=== PATIENT | female | born 1985 | race Caucasian/White ===

== ENCOUNTER 2016-05-17 05:50 | Observation (INO) | payer OTHER ==
[~2016-05-17] VITALS: Ht 154.9 cm; Wt 82.6 kg
[~2016-05-17 05:50] MED LIST: DEP250A PO; LORA-303 PO; ONDA4TAB12 PO; PANT40TA3 PO; PROP20TA5 PO
[2016-05-17 05:59] VITALS: BP 142/93; PULSE 98; RESP 24; O2SAT 98
--- NOTE | 2016-05-17 06:01 | ED.REPORT ---
IXK-Qef-Kzde Illness Date of Service May 17, 2016 ED Provider: Patient is a 30 year old female with a history of hospitalizations for cyclical vomiting who presents to the ED complaining of vomiting. Pt was last seen in the ER for similar symptoms two months ago. She has a history of frequent marijuana use, and reports that she is still smoking marijuana on a daily basis. Pt reports diffuse abdominal pain, onset two days and states that she has had similar pain like this before. Pt denies fever. Nursing Notes Stated Complaint: FLU SYMPTOMS Chief Complaint: FLU/Cold Symptoms Nursing Notes Reviewed: Yes Allergies: Coded Allergies: hydromorphone (Verified Allergy, Intermediate, Nausea,Vomiting, 03/10/16) Scheduled Divalproex DR (Depakote DR) 250 Mg Tablet 250 MG PO BID Pantoprazole DR (Pantoprazole DR) 40 Mg Tablet.dr 40 MG PO DAILY Propranolol HCl (Propranolol HCl) 20 Mg Tablet 10 MG PO TID Scheduled PRN Lorazepam (Ativan) 1 Mg Tablet 1 MG PO TID PRN PRN eva Ondansetron ODT (Ondansetron ODT) 4 Mg Tab.rapdis 4 MG PO Q6H PRN PRN For Nausea General Time Seen by Provider: 06:00 Chief Complaint Vomiting Hx Obtained From: Patient Arrived By: Walk-in Onset Occurred: 2 days ago Symptom Duration: Since onset Severity: Current: Mild Severity: Maximum: Mild Recent Healthcare: Recent hospitalization Similar Sx Previous: Yes Past Medical History 03/17/16 Consultation: ASSESSMENT AND PLAN: A 30-year-old woman presenting with chronic nausea and vomiting. My plan will be to evaluate for any mucosal disease and would therefore plan for upper endoscopy. I would recommend continuing PPI daily. If upper endoscopy is normal, would then recommend gastric emptying study. If gastric emptying study is normal, would recommend checking a cortisol level to rule out adrenal insufficiency and check a TSH if not already performed. Would also in the meantime give her a trial of benzodiazepines to see if relieving her anxiety may help with her nausea and vomiting. Additionally I did discuss with her the importance of continued marijuana abstinence; however, I do not believe that she will be able to abstain, as she did report to me that this is the only thing she has found that helps her nausea and vomiting. Past Medical History Multiple admissions for intractable nausea and vomiting secondary to cyclical vomiting. Past Surgical History laparascopic cholecystectomy Reports: Reports: Tubal ligation Family History Noncontributory Smoking History Former Smoker Social History Alcohol Use: "Social" Drug Use: THC Other Social History: Frequent ED visitor, Local resident Ambulatory Status Independent Review of Systems Constitutional: Reports: Chills, Denies: Fever GI: Reports: Abdominal pain (diffuse), Nausea, Vomiting Complete sys rev & neg: except as marked. Physical Exam Initial Vital Signs Vital Signs (First) Date Time Temp Pulse Resp B/P Pulse Ox O2 Delivery O2 Flow Rate FiO2 05/17/16 05:59 36.5 98 24 142/93 98 Room Air Initial VS: Reviewed Head / Eyes: Atraumatic, Normocephalic, PERRL ENT: Mucous membranes moist, Conjunctiva normal, No scleral icterus Extremities: Vascular intact, Neuro intact, No swelling, No tenderness Psychiatric: Mood/affect normal, Behavior normal, Normal thought content General/Constitutional: Awake, Alert crying out in pain actively vomiting over a garbage can from home Neck: Atraumatic, Supple, Full range of motion, Non-tender Respiratory / Chest: Atraumatic, Breath sounds NL, Breath sounds = bilat, No respiratory distress Cardiovascular: Heart rate NL, Regular rhythm, Heart sounds NL Skin: Atraumatic, Color NL, No rash Neurologic: Oriented X3, Speech NL, No motor deficits, No sensory deficits Abdomen: No guarding, No rebound diffusely tender to mild palpatation Lower Extremity / Pelvis / MS: No edema Interpretation & Diagnostics Interpretation & Diagnostics: Pathology report from 03/19/16 FINAL DIAGNOSIS: 1.DUODENAL BIOPSY: DUODENAL MUCOSA WITH NO DIAGNOSTIC ALTERATIONS. Negative for inflammation, sprue, dysplasia, and malignancy. 2.GASTRIC BIOPSY: ANTRAL AND BODY-TYPE MUCOSA WITH NO DIAGNOSTIC ABNORMALITY. Negative for Helicobacter organisms. Negative for intestinal metaplasia. Negative for dysplasia and malignancy. Urine dip: positive Protein, Large Ketones, positive Blood Lab Results Interpretation Result Diagram: 05/17/16 0640 05/17/16 0640 Test 05/17/16 06:40 05/17/16 09:15 White Blood Count 14.2th/mm3 (3.8-10.1) Red Blood Count 4.74mil/mm3 (3.90-5.20) Hemoglobin 14.5g/dL (12.0-15.6) Hematocrit 42.3% (35.0-46.0) Mean Corpuscular Volume 89.2fL (81-100) Mean Corpuscular Hemoglobin 30.6pg (27.0-35.0) Mean Corpuscular Hemoglobin Concent 34.3% (32.0-37.0) Red Cell Distribution Width 12.6% (12.3-15.4) Platelet Count 267bil/L (150-400) Neutrophils (%) (Auto) 89.6% (40-74) Lymphocytes (%) (Auto) 4.2% (14-46) Monocytes (%) (Auto) 4.9% (4-12) Eosinophils (%) (Auto) 0.9% (0-5) Basophils (%) (Auto) 0.1% (0-3) Sodium Level 136mEq/L (134-144) Potassium Level 4.1mEq/L (3.5-5.2) Chloride Level 94mEq/L (97-108) Carbon Dioxide Level 21mmol/L (18-29) Blood Urea Nitrogen 24mg/dL (6-20) Creatinine 0.75mg/dL (0.57-1.00) Estimat Glomerular Filtration Rate 129mL/min (>59) Glucose Level 206mg/dL (60-99) Calcium Level 9.4mg/dL (8.5-10.1) Magnesium Level 1.7mg/dL (1.6-2.6) Total Bilirubin 0.7mg/dL (0.0-1.2) Aspartate Amino Transf (AST/SGOT) 22U/L (0-50) Alanine Aminotransferase (ALT/SGPT) 22U/L (0-32) Alkaline Phosphatase 61U/L (25-150) Total Protein 8.2g/dL (6.4-8.4) Albumin 4.8g/dL (3.4-5.0) Lipase 22U/L (13-60) Hold Small Top Tube Received (Received) Hold Urine Received (Received) Re-Evaluation & MDM Med Decision/Clinical Course Patient minimally improved with significant pharmacologic intervention. Recommend hospitalization for observation and symptom Medicare. Source of Hx: Old records Re-Evaluation/Progress : Time of Eval: 10:06 Re-Evaluation/Progress Note: Pt rechecked. Informed pt of diagnosis and lab results. Pt understands and requests admission to hospital to maintain symptoms. All questions addressed. Consultation : Referral / Consult Name: Edgar Morales MD Consulted With: Hospitalist Requested Call at: 10:09 Call Returned at: 11:10 Trades Helper: Will see patient, Agrees with eval, Agrees with plan, Accepts admit Counseled Regarding: Diagnosis, Lab results, Need for admission Patient Discharge & Departure Impression: Primary Impression: Intractable nausea and vomiting Vomiting type: cyclical vomiting Qualified Code: G43.A1 - Cyclical vomiting , intractable Disposition: ADMITTED TO HOSPITAL Discharge Condition All VS Reviewed: Yes Condition: Stable Referrals: Alia Shanks DO (PCP) [place] Attestation Portion of this note were transcribed by Claudette Padron and Kristi Duffy. I, Dr. Wayne, personally performed the history, physcial exam, and medical decision- making: I reviewed and confirmed the accuracy for the information in the transcribed note. Signed by: Kristi Duffy and josef Walker, 05/13/16 1140. copies to: Alia Shanks Kirk H MD May 17, 2016 06:01 KRISTI DUFFY May 17, 2016 06:33 Claudette Padron May 17, 2016 11:35
[2016-05-17] MEDS ORDERED: 0.9% Sodium Chloride 1,000 ML IV ONE ×3 (06:26→14:15)
[2016-05-17] MEDS ORDERED: Acetaminophen IV 1,000 MG in IV Premix 1 EACH IV ONE (06:30)
[2016-05-17] MEDS ORDERED: Pantoprazole 4 mg/mL 10 mL Inj IVPUSH ONE (06:30)
[2016-05-17] MEDS ORDERED: Haloperidol 5 mg/mL Inj IVPUSH ONE (06:30)
[2016-05-17] MEDS ORDERED: Dexamethasone 10 mg/mL Inj IVPUSH ONE (06:30)
[2016-05-17] MEDS ORDERED: MetoCLOpramide 5 mg/mL 2 mL Inj IVPUSH ONE (06:30)
[2016-05-17] MEDS: Ondansetron 2 mg/mL 2 mL Inj IVPUSH PRN ×4 (07:04→19:25)
[2016-05-17 07:26] LABS: Magnesium 1.7 mg/dL (1.6-2.6)
[2016-05-17 07:29] LABS: BASOPHILS % (AUTO) 0.1 % (0-3); EOSINOPHILS % (AUTO) 0.9 % (0-5); MONOCYTES % (AUTO) 4.9 % (4-12); Mean Corpuscular Hemoglobin 30.6 pg (27.0-35.0); Mean Corpuscular Volume 89.2 fL (81-100); NEUTROPHILS % (AUTO) 89.6 % (40-74); Platelet Count 267 bil/L (150-400)
[2016-05-17 09:38] VITALS: BP 101/60; PULSE 80; RESP 14; O2SAT 98
[2016-05-17] MEDS ORDERED: Acetaminophen IV 1,000 MG in IV Premix 1 EACH IV PRN (11:15)
[2016-05-17] MEDS ORDERED: MetoCLOpramide 5 mg/mL 2 mL Inj IVPUSH PRN (11:15)
[2016-05-17] MEDS ORDERED: Ondansetron 2 mg/mL 2 mL Inj IVPUSH PRN (11:45)
[2016-05-17] MEDS ORDERED: Alum-Mag Hydrox-Simeth 30 mL Suspension PO PRN (11:45)
[2016-05-17 12:10] LABS: APPEARANCE,URINE CLEAR (CLEAR,HAZY); COLOR,URINE YELLOW (YELLOW); OCCULT BLOOD,URINE TRACE (NEGATIVE); UROBILINOGEN,URINE NORMAL (NORMAL)
--- NOTE | 2016-05-17 12:19 | NUR ---
Arrival to unit Patient arrived to unit via WC. Crying and tearful. Informed patient that she is not allowed to pace in the halls due to her Flu Symptoms diagnosis. Patient requested to take a shower. In shower at this time. Stable, alert, walking in room.
[2016-05-17 12:35] VITALS: BP 113/52; PULSE 54; RESP 18; O2SAT 96
[2016-05-17] MEDS: Promethazine 25 mg/mL Inj IV PRN ×2 (14:04→20:50)
--- NOTE | 2016-05-17 14:17 | PCM.HPMED ---
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 Villalpando, had EGD done which mild gastritis, esophagitis, final pathology negative for organic causes. Plan was to have gastric emptying study but it was defferred per pt given Reglan given-which has to be held for 3days for better dx. pt didn't follow up PCP/GI since admission. Since then, patient was relatively doing well until last night. Patient admitted that she smoked marijuana every day A Custis was the only medicine made her calm. She admitted that she has anxiety, almost like panic attack symptoms for which she tried 4-5 different anti-anxiolytics but xanax/ativan made her dizzy, couldn't tolerate. Of note, pt was never seen by Psychiatrist. last night, pt started having n/v, took 1tab of zofran, had minimal improvement, with sharp diffuse abdominal cramps, also developed 3 biliary watery diarrhea, which is new. Patient stated that she is experiencing almost daily acid reflux, heartburn, thinks that she tolerated prilosec in the past, currently didn't take any meds for heartburn. Showers either cool or warm helped her sx so she tried shower last night, only minimally improved her sx. In ED, VS stable, afebrile pt received cocktails of GI tx- Reglanx2, zofran, 1liter NS, toradol, haldol, protnix, benadryl, symptoms continued, decided to admit to hospital. On MOC, pt was noted comfortable, stated that her pain is 5 out of 10, thinks that combination of meds helped her sx. Review of Systems: Pertinent positives as noted in history of present illness. All other systems were reviewed and are negative Allergies Coded Allergies: hydromorphone (Verified Allergy, Intermediate, Nausea,Vomiting, 05/17/16) Home Medications zofran prn PMH PMH Past Medical History Anxiety Acid Reflux Cyclic Vomiting Syndrome Surgical History section x 2 Bilateral Tubal Ligation Laparoscopic cholecystectomy Home Medications NONE Allergies: Coded Allergies: hydromorphone (Verified Allergy, Intermediate, Nausea,Vomiting, 03/10/15) Family History Family History Father- committed suicide Mother- of breast cancer Brother- healthy Social History Hx Alcohol Use: Yes (3-4 beers every two days) Hx Substance Use: Yes (marijuana everyday until 3 days ago) Hx Tobacco Use: Yes (Vaporizes everyday) Smoking Status: Current Every Day Smoker (vaporizes all day) Living Arrangement: with Family Social History Hx Alcohol Use: No Hx Substance Use: Yes (daily THC.) Hx Tobacco Use: Yes (Vaporizes everyday) Smoking Status: Former Smoker Exam Vital Signs Vital Sign - Last Date Time Temp Pulse Resp B/P Pulse Ox O2 Delivery O2 Flow Rate FiO2 05/17/16 09:38 36.5 80 14 101/60 98 Room Air Exam NAD, comfortably laying down on the bed no JVD, MMM, no LAD RRR, nl s1, s2 no mrg CTAB, no w,c S,ND, diffuse tenderness,normoactive BS+ warm, no edema, pulses 2/2 Lab and Diagnostics Result Diagram: 05/17/1663905/17/16 0640 Assessment & Plan 30yo F w/ 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 -Discussed with today, reviewed the case, no further recommendations except possible gastric emptying study, prokinetics on d/c, marijuana cessation , trial of anti-anxiolytics -ordered gastric emptying study although pt received Reglan in ED, likely be positive, then d/c with Reglan, zofran po -consider inpatient psychiatric consult if pt seemed anxious, agitated or empirically start TCA as well -will continue, Phenergan 25 q6h prn, Compazine 10mg q6h prn, Zofran 4mg q6h prn , ketorolac 15mg q6h, [id number] for symptom control -IVF 1more bolus chronic, stable Chiary 1 malformation, pt is still waiting for outpatient neuro appt, it was thought to be not contributing to her sx from last hospitalization. dvt ppx: LMWH Full code diet: clears advance as tolerate dispo: Patient is admitted under observation status with expectation that she will be discharged within 24-48 hours, Time spent 65 minutes Edgar Morales MD May 17, 2016 13:12
[2016-05-17] MEDS: Ketorolac 15 mg/mL Inj IVPUSH PRN ×2 (14:24→20:50)
--- NOTE | 2016-05-17 15:42 | NUR ---
Assessment/n/v/Plan of care Patient taken off Influenza precautions per Dr. Morales. Patient is stable, feeling better after nausea meds, IVF infusing. Due to patient receiving IV Reglan in ED this am, Gastric Emptying study is cancelled. Nuclear Medicine would need 48hrs after Reglan dose to do study. Dr. Morales does not feel she would still be hospitalized at the time to do the study.
[2016-05-17 16:30] VITALS: BP 128/60; PULSE 62; RESP 18; O2SAT 95
[2016-05-17] MEDS: ProchlorPERazine 5 mg/mL 2 mL Inj IVPUSH PRN ×2 (16:50→23:34)
[2016-05-17 20:37] VITALS: BP 114/71; PULSE 51; RESP 16; O2SAT 100
--- NOTE | 2016-05-17 21:00 | NUR ---
Sleep Aid Pt requests sleep aid since she does not sleep well in hospital. paged.
[2016-05-17] MEDS ORDERED: LORazepam 1 mg Tablet PO PRN (21:35)
--- NOTE | 2016-05-18 01:00 | NUR ---
IV Patients IV has been not working well. Glenda CLEVELAND came to start IV since patient reports being a hard stick. Unsuccessful in attempts but did get previous IV to work marginally. NS infusing has been stopped due to PO intake of water and IV not working well. IV site can be used for medication administration.
[2016-05-18] MEDS: Ondansetron 2 mg/mL 2 mL Inj IVPUSH PRN ×2 (01:42→10:16)
[2016-05-18 03:01] VITALS: BP 128/82; PULSE 58; RESP 16; O2SAT 100
[2016-05-18] MEDS: Promethazine 25 mg/mL Inj IV PRN ×2 (04:35→12:43)
[2016-05-18] MEDS: Ketorolac 15 mg/mL Inj IVPUSH PRN (04:36)
[2016-05-18 06:03] LABS: BASOPHILS % (AUTO) 0.1 % (0-3); EOSINOPHILS % (AUTO) 0.1 % (0-5); MONOCYTES % (AUTO) 8.7 % (4-12); Mean Corpuscular Hemoglobin 30.4 pg (27.0-35.0); Mean Corpuscular Volume 91.1 fL (81-100); NEUTROPHILS % (AUTO) 82.7 % (40-74); Platelet Count 244 bil/L (150-400)
[2016-05-18 06:15] LABS: Magnesium 2.4 mg/dL (1.6-2.6); Phosphorus 3.1 mg/dL (2.5-4.9)
[2016-05-18] MEDS ORDERED: Pantoprazole 4 mg/mL 10 mL Inj IVPUSH SCH (07:30)
[2016-05-18 08:26] VITALS: BP 116/71; PULSE 53; RESP 18; O2SAT 99
[2016-05-18] MEDS ORDERED: METO5SOL19 PO (11:39)
[2016-05-18] MEDS ORDERED: ONDA4TAB6 PO (11:39)
[2016-05-18] MEDS ORDERED: DIPH25CA6 PO (11:39)
--- NOTE | 2016-05-18 11:50 | PCM.DIMED ---
Discharge Instructions Date of Service May 18, 2016 Dates of Hospitalization May 17, 2016 at 11:32 Discharge Diagnosis Discharge Diagnosis Cyclic Vomiting syndrome, related to marihuana use Medication Instructions For recurrent nausea, vomiting you can take Reglan 5mg four times per day as needed, zofran 4mg every 4hours as needed, Benadryl 25mg every 4hours as needed Diet Other (please slowly advance your diet as you tolerate) Activity No restrictions Patient Instructions You were hospitalized with abdominal pain, intractable nausea and vomiting, likely related to marihuana use. Instruction for patient Please note that Marijuana cessation is strongly recommended given association with your symptoms Please note that you need to see psychiatrist for anxiety so that you can stop using marijuana Please follow up with GI doctor if symptoms continue after you stop using marijuana please follow medicine recommendation as above Instruction for PCP Please refer patient for psychiatry for presumed anxiety disorder Please consider gastric emptying study, as it was deferred given Reglan given < 48hrs, which has to held for diagnostic yield. Please renew prokinetics, anti-emetics as needed Follow-up plan Please follow up with your PCP as scheduled in 05/28 Follow-up Provider: Alia Shanks DO Follow-up with PCP in: 2 weeks Edgar Morales MD May 18, 2016 11:45
--- NOTE | 2016-05-18 11:57 | NUR ---
Social Work Discharge Planning: SW met with patient at bedside to discuss discharge plan. Order for discharge acknowledged. Patient is a 30 year old female admitted on 05/17/16 for Flu symptoms and CVS. Patient resides in [facility] with kei. Patient states being independent with needs and states Patient states payer as Joshua GOODWIN. Patient states PCP as MD Shanks but patient is being transitioned to another MD as patient previous MD not longer in practice. Patient states pharmacy of choice as [facility]. Patient has no HHC, SNF, DME, or AD history. Patient declined AD completion at this time. Patient states fiance to provide transport home. SW attempted to discuss marijuana use in relation with CVS. Patient states she has been using marijuana since she was 13 years old and believes that marijuana use is not related to medical diagnosis. Patient states not being current with any treatment programs at this time and denied resources or further discussion. No anticipated discharge need at this time. PLAN: Home via POV. No anticipated discharge needs identified at this time. Manuel KEANE
--- NOTE | 2016-05-18 13:03 | NUR ---
Discharge Pt discharged at 1300. She was given 3 prescriptions to take with her. She was given discharge instructions and confirmed understanding of these instructions. She was given instructions for follow up care. She walked herself down to the exit, she declined any staff assistance. Her boyfriend would be picking her up at the entrance.
--- NOTE | 2016-05-20 13:40 | PCM.DC.MED ---
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 Villalpando, had EGD done which mild gastritis, esophagitis, final pathology negative for organic causes. Plan was to have gastric emptying study but it was defferred per pt given Reglan given-which has to be held for 3days for better dx. pt didn't follow up PCP/GI since admission. Since then, patient was relatively doing well until last night. Patient admitted that she smoked marijuana every day A Custis was the only medicine made her calm. She admitted that she has anxiety, almost like panic attack symptoms for which she tried 4-5 different anti-anxiolytics but xanax/ativan made her dizzy, couldn't tolerate. Of note, pt was never seen by Psychiatrist. last night, pt started having n/v, took 1tab of zofran, had minimal improvement, with sharp diffuse abdominal cramps, also developed 3 biliary watery diarrhea, which is new. Patient stated that she is experiencing almost daily acid reflux, heartburn, thinks that she tolerated prilosec in the past, currently didn't take any meds for heartburn. Showers either cool or warm helped her sx so she tried shower last night, only minimally improved her sx. In ED, VS stable, afebrile pt received cocktails of GI tx- Reglanx2, zofran, 1liter NS, toradol, haldol, protnix, benadryl, symptoms continued, decided to admit to hospital. On MOC, pt was noted comfortable, stated that her pain is 5 out of 10, thinks that combination of meds helped her sx. Hospital Course 30yo F w/ hx of CVS presumably related to marijuana abuse and recurrent admissions with similar sx, incidental findings of Chiari I malformation in Mar p/w intractable nausea vomiting started last night #Intractable nausea, vomiting, likely Cyclic vomiting syndrome with Marihuana, POA, Labs were unremarkable, thus unlikely other infectious/organic dz given normal lactate/hepatobiliary panel s/p cholecystectomy, I discussed with today, who reviewed the case and had EGD done in the past(in which showed mild gastritis/esophagitis, pathology essentially negative for any dz), no further recommendations given except possible gastric emptying study, prokinetics on d/c, marijuana cessation, trial of anti-anxiolytics. Gastric emptying study deferred given regaln given in ED(needs >48hrs of clearance for diagnostic yield). Pt received cocktails of prokinetics, anti-emetics such as Phenergan 25 q6h prn, Compazine 10mg q6h prn, Zofran 4mg q6h prn, ketorolac 15mg q6h, , symptoms resolved on HD2.pt tolerated diet, deemed safe for d/c. pt was given prokinetics/anti-emetics upon d/c and stressed the importance of marijuana cessation, advised to follow up with PCP and possible psychiatric consult to avoid marijuana as pt substituted for controlling anxiety. also recommended to have gastric emptying study while off on any GI meds/marijuana. chronic, stable #Chiary 1 malformation, recently found in MRI, pt is still waiting for outpatient neuro appt, it was thought to be not contributing to her sx from last hospitalization, asked to follow neurosurg. Exam Vital Signs (Last) Date Time Temp Pulse Resp B/P Pulse Ox O2 Delivery O2 Flow Rate FiO2 05/18/16 08:26 36.4 53 18 116/71 99 Room Air Exam NAD, comfortably laying down on the bed no JVD, MMM, no LAD RRR, nl s1, s2 no mrg CTAB, no w,c S,ND, diffuse tenderness,normoactive BS+ warm, no edema, pulses 2/2 Test 05/17/16 06:40 05/17/16 09:15 05/18/16 04:55 Lipase 22U/L (13-60) Hold Small Top Tube Received (Received) Urine Color Yellow (YELLOW) Urine Appearance Clear (CLEAR,HAZY) Urine pH 6.0 (5.0-8.0) Urine Specific [place] 1.025 (1.003-1.035) Urine Protein Negativemg/dL (NEG,TRACE) Urine Glucose (UA) Negativemg/dL (NEGATIVE) Urine Ketones 40mg/dL (NEGATIVE) Urine Occult Blood Trace (NEGATIVE) Urine Nitrite Negative (NEGATIVE) Urine Bilirubin Negative (NEGATIVE) Urine Urobilinogen Normalmg/dL (NORMAL) Urine Leukocyte Esterase Negative (NEGATIVE) Urine RBC 0-2/hpf (0-2) Urine WBC 0-5/hpf (0-5) Urine Epithelial Cells Occasional/hpf (NONE-MOD) Urine Crystals None seen (NONE SEEN) Urine Bacteria Moderate/hpf (NONE-FEW) Urine Hyaline Casts None/lpf (NONE) Urine Granular Casts None seen (NONE SEEN) Urine Waxy Casts None seen (NONE SEEN) Urine Red Blood Cell Casts None seen (NONE SEEN) Urine White Blood Cell Casts None seen (NONE SEEN) Urine Mucus None seen (None Seen) Urine Trichomonas None seen (NONE SEEN) Urine Yeast None (NONE SEEN) Urinalysis Comment None Urine Culture Reflexed Indicated Hold Urine Received (Received) Urine Opiates Screen Negative Urine Methadone Screen Negative Urine Barbiturates Screen Negative Urine Amphetamines Screen Negative Urine Benzodiazepines Screen Negative Urine Cocaine Metabolite Screen Negative Urine Cannabinoids Screen Positive White Blood Count 16.4th/mm3 (3.8-10.1) Red Blood Count 4.27mil/mm3 (3.90-5.20) Hemoglobin 13.0g/dL (12.0-15.6) Hematocrit 38.9% (35.0-46.0) Mean Corpuscular Volume 91.1fL (81-100) Mean Corpuscular Hemoglobin 30.4pg (27.0-35.0) Mean Corpuscular Hemoglobin Concent 33.4% (32.0-37.0) Red Cell Distribution Width 12.8% (12.3-15.4) Platelet Count 244bil/L (150-400) Neutrophils (%) (Auto) 82.7% (40-74) Lymphocytes (%) (Auto) 8.1% (14-46) Monocytes (%) (Auto) 8.7% (4-12) Eosinophils (%) (Auto) 0.1% (0-5) Basophils (%) (Auto) 0.1% (0-3) Sodium Level 138mEq/L (134-144) Potassium Level 4.2mEq/L (3.5-5.2) Chloride Level 99mEq/L (97-108) Carbon Dioxide Level 24mmol/L (18-29) Blood Urea Nitrogen 13mg/dL (6-20) Creatinine 0.64mg/dL (0.57-1.00) Estimat Glomerular Filtration Rate 155mL/min (>59) Glucose Level 106mg/dL (60-99) Calcium Level 9.4mg/dL (8.5-10.1) Phosphorus Level 3.1mg/dL (2.5-4.9) Magnesium Level 2.4mg/dL (1.6-2.6) Total Bilirubin 0.4mg/dL (0.0-1.2) Aspartate Amino Transf (AST/SGOT) 20U/L (0-50) Alanine Aminotransferase (ALT/SGPT) 18U/L (0-32) Alkaline Phosphatase 51U/L (25-150) Total Protein 7.2g/dL (6.4-8.4) Albumin 4.4g/dL (3.4-5.0) Discharge Medications As needed Metoclopramide (Metoclopramide) 5 Mg/5 Ml Solution 5 MG PO QID PRN PRN For Nausea Prescribed by: CAROL MORALES MD Ondansetron (Zofran) 4 Mg Tablet 4 MG PO Q4H PRN PRN For Nausea Prescribed by: CAROL MORALES MD diphenhydrAMINE HCl (Benadryl) 25 Mg Capsule 25 MG PO Q4 PRN PRN For Nausea Prescribed by: CAROL MORALES MD Additional med instructions For recurrent nausea, vomiting you can take Reglan 5mg four times per day as needed, zofran 4mg every 4hours as needed, Benadryl 25mg every 4hours as needed Followup Plan Disposition: home Follow-up plan Please follow up with your PCP as scheduled in 05/28 Discharge Diet: Other (please slowly advance your diet as you tolerate) Discharge Activity: No restrictions Patient Instructions You were hospitalized with abdominal pain, intractable nausea and vomiting, likely related to marihuana use. Instruction for patient Please note that Marijuana cessation is strongly recommended given association with your symptoms Please note that you need to see psychiatrist for anxiety so that you can stop using marijuana Please follow up with GI doctor if symptoms continue after you stop using marijuana please follow medicine recommendation as above Instruction for PCP Please refer patient for psychiatry for presumed anxiety disorder Please consider gastric emptying study, as it was deferred given Reglan given < 48hrs, which has to held for diagnostic yield. Please renew prokinetics, anti-emetics as needed Follow-up Provider: Alia Shanks DO Follow-up with PCP in: 2 weeks Time spent 65min Carol Morales MD May 20, 2016 13:39
== END 2016-05-18 13:01 | disposition home or self-care (01) ==
LOC: SED 05:50 → MOC 11:32
PROVIDERS: ADMIT Hospitalist; ATTEND Hospitalist
DX: G43.A0 Cyclical vomiting, in migraine, not intractable (principal); T40.7X4A Poisoning by cannabis (derivatives), undetermined, initial encounter; F12.10 Cannabis abuse, uncomplicated; Z72.0 Tobacco use
CPT/HCPCS: 36415; 80053; 81000; 81025; 83690; 83735; 84100; 85025; 87086; 87088; 96361; 96374; 96375; 96376; 99285; G0378; G0480; J0131; J0780; J1100; J1200; J1630; J1885; J2405; J2765; J7030

== ENCOUNTER 2016-08-06 19:23 | Emergency (ER) | payer OTHER ==
[~2016-08-06] VITALS: Ht 154.9 cm; Wt 81.8 kg
[~2016-08-06 19:23] MED LIST changes: -DEP250A PO; +DIPH25CA6 PO; -LORA-303 PO; +METO5SOL19 PO; -ONDA4TAB12 PO; +ONDA4TAB6 PO; -PANT40TA3 PO; -PROP20TA5 PO
[2016-08-06 19:29] VITALS: BP 127/70; PULSE 71; RESP 16; O2SAT 99
[2016-08-06] MEDS ORDERED: Ondansetron 2 mg/mL 2 mL Inj ONE (19:54)
--- NOTE | 2016-08-06 19:56 | ED.REPORT ---
HPI-NVD Date of Service Aug 06, 2016 ED Provider: Chan Bolden DO Pt is a 31 y/o female presenting to the ED c/o N/V/D onset 3 days ago. She c/o associated mild diffuse abdominal pain. She denies fever, chills, hematemesis, bloody stool. She has multiple admissions for cyclical nausea and vomiting. Nursing Notes Stated Complaint: NAUSEA,VOMITING Chief Complaint: Female Abdominal Pain Nursing Notes Reviewed: Yes Allergies: Coded Allergies: hydromorphone (Verified Allergy, Intermediate, Nausea,Vomiting, 08/06/16) Scheduled PRN Metoclopramide (Metoclopramide) 5 Mg/5 Ml Solution 5 MG PO QID PRN PRN For Nausea Ondansetron (Zofran) 4 Mg Tablet 4 MG PO Q4H PRN PRN For Nausea diphenhydrAMINE HCl (Benadryl) 25 Mg Capsule 25 MG PO Q4 PRN PRN For Nausea General Time Seen by MD: 19:55 Chief Complaint Nausea, Vomiting, Diarrhea Hx Obtained From: Patient Arrived By: Walk-in Onset Occurred: 3 days ago Symptom Duration: Since onset Location: : Diffuse Quality: Aching Severity: Current: Mild Severity: Maximum: Moderate Recent Healthcare: Previous diagnosis Similar Sx Previous: Yes Past Medical History Past Medical History Multiple admissions for intractable nausea and vomiting secondary to cyclical vomiting. Past Surgical History laparascopic cholecystectomy Reports: Reports: Tubal ligation Family History Noncontributory Smoking History Former Smoker Social History Alcohol Use: "Social" Drug Use: THC Other Social History: Frequent ED visitor, Local resident Ambulatory Status Independent Review of Systems Constitutional: Denies: Chills, Fever GI: Reports: Abdominal pain, Diarrhea, Nausea, Vomiting, Denies: Bloody/tarry stool, Hematemesis Skin: Denies Bruising, Denies Diaphoresis Complete sys rev & neg: except as marked. Respiratory: Denies: Non-productive cough, Shortness of breath Cardiovascular: Denies: Chest pain, Dyspnea on exertion Female: Denies: Dysuria, Flank pain Physical Exam Initial Vital Signs Vital Signs (First) Date Time Temp Pulse Resp B/P Pulse Ox O2 Delivery O2 Flow Rate FiO2 08/06/16 19:29 37.0 71 16 127/70 99 Room Air Initial VS: Reviewed, Vital signs normal Head / Eyes: Atraumatic, Normocephalic, PERRL ENT: Mucous membranes moist, Conjunctiva normal, No scleral icterus Neck: Supple, Full range of motion Respiratory: Breath sounds normal, Clear to auscultation, No respiratory distress Cardiovascular: Regular rate & rhythm, Heart sounds normal, Intact distal pulses Extremities: Vascular intact, Neuro intact, No swelling, No tenderness Skin: Warm, Dry, No cyanosis Neurologic: Alert, Oriented, Nonfocal Psychiatric: Mood/affect normal, Behavior normal, Normal thought content General/Constitutional: Awake, Alert, No acute distress, Cooperative, Not toxic appearing Abdomen: Atraumatic, Soft, Non-tender, No guarding, No rebound, No distention, No palpable mass Is nauseous holding emesis bag Interpretation & Diagnostics Lab Results Interpretation Result Diagram: 08/06/16 1950 08/06/16 1950 Test 08/06/16 19:50 08/06/16 21:59 White Blood Count 14.0th/mm3 (3.8-10.1) Red Blood Count 4.52mil/mm3 (3.90-5.20) Hemoglobin 13.5g/dL (12.0-15.6) Hematocrit 39.7% (35.0-46.0) Mean Corpuscular Volume 87.8fL (81-100) Mean Corpuscular Hemoglobin 29.9pg (27.0-35.0) Mean Corpuscular Hemoglobin Concent 34.0% (32.0-37.0) Red Cell Distribution Width 12.3% (12.3-15.4) Platelet Count 291bil/L (150-400) Neutrophils (%) (Auto) 82.5% (40-74) Lymphocytes (%) (Auto) 13.0% (14-46) Monocytes (%) (Auto) 3.9% (4-12) Eosinophils (%) (Auto) 0.2% (0-5) Basophils (%) (Auto) 0.2% (0-3) Sodium Level 134mEq/L (134-144) Potassium Level 3.7mEq/L (3.5-5.2) Chloride Level 97mEq/L (97-108) Carbon Dioxide Level 19mmol/L (18-29) Blood Urea Nitrogen 9mg/dL (6-20) Creatinine 0.63mg/dL (0.57-1.00) Estimat Glomerular Filtration Rate 157mL/min (>59) Glucose Level 96mg/dL (60-99) Calcium Level 9.5mg/dL (8.5-10.1) Magnesium Level 2.0mg/dL (1.6-2.6) Total Bilirubin 0.4mg/dL (0.0-1.2) Aspartate Amino Transf (AST/SGOT) 22U/L (0-50) Alanine Aminotransferase (ALT/SGPT) 34U/L (0-32) Alkaline Phosphatase 54U/L (25-150) Total Protein 7.7g/dL (6.4-8.4) Albumin 4.6g/dL (3.4-5.0) Lipase 20U/L (13-60) HCG Beta Subunit 0.500mIU/mL Hold Small Top Tube Received (Received) Urine Color Yellow (YELLOW) Urine Appearance Hazy (CLEAR,HAZY) Urine pH 6.0 (5.0-8.0) Urine Specific [place] 1.005 (1.003-1.035) Urine Protein Negativemg/dL (NEG,TRACE) Urine Glucose (UA) Negativemg/dL (NEGATIVE) Urine Ketones 15mg/dL (NEGATIVE) Urine Occult Blood Large (NEGATIVE) Urine Nitrite Negative (NEGATIVE) Urine Bilirubin Negative (NEGATIVE) Urine Urobilinogen Normalmg/dL (NORMAL) Urine Leukocyte Esterase Moderate (NEGATIVE) Urine RBC >50/hpf (0-2) Urine WBC 6-10/hpf (0-5) Urine Epithelial Cells Moderate/hpf (NONE-MOD) Urine Crystals None seen (NONE SEEN) Urine Bacteria Moderate/hpf (NONE-FEW) Urine Hyaline Casts None/lpf (NONE) Urine Granular Casts None seen (NONE SEEN) Urine Waxy Casts None seen (NONE SEEN) Urine Red Blood Cell Casts None seen (NONE SEEN) Urine White Blood Cell Casts None seen (NONE SEEN) Urine Mucus Present (None Seen) Urine Trichomonas None seen (NONE SEEN) Urine Yeast None (NONE SEEN) Urinalysis Comment None Urine Culture Reflexed Indicated Hold Urine Received (Received) Re-Eval/Medical Decision Med Decision/Clinical Course Very pleasant 31-year-old female with a history of cyclic vomiting presents with vomiting as well as rather significant right lower quadrant abdominal pain. She is found have moderate right lower quadrant tenderness but she is treated symptomatically. She does have leukocytosis. She has a UTI as well. CT scan showed a normal appendix. She was medicated looked and felt much better. The place and Bactrim. Culture her urine. Recommend close outpatient follow-up. Antiemetics provided. Source of Hx: Old records Re-Evaluation/Progress : Time of Eval: 03:06 Patient Status: Condition improved, Moderate relief Re-Evaluation/Progress Note: Pt rechecked. Informed pt of plan for treatment. Pt understands and agrees with plan for treatment. F/U and RTER warnings given. All questions addressed. Counseled Regarding: Diagnosis, Lab results, Need for follow-up, When/why to return to ED Discharge & Departure Impression: Primary Impression: Abdominal pain Abdominal location: generalized Qualified Code: R10.84 - Generalized abdominal pain Additional Impressions: Cyclical vomiting Vomiting Intractability: non-intractable Nausea presence: with nausea Qualified Code: G43.A0 - Cyclical vomiting, not intractable Urinary tract infection Urinary tract infection type: acute cystitis Hematuria presence: without hematuria Qualified Code: N30.00 - Acute cystitis without hematuria Disposition: Home Discharge Condition All VS Reviewed: Yes Condition: Stable Patient Instructions: Acute Abdominal Pain (ED), Acute Nausea and Vomiting (ED) , Urinary Tract Infection in Women (DC) Additional Instructions: The laboratory work demonstrated dehydration and an elevated white blood cell count. Your urine sample does appear to be infected. The CT scan of the abdomen and pelvis was reassuring. Take Bactrim twice daily for 5 days while we are culturing your urine. Take Zofran 1 every 8 hours as needed for nausea and vomiting. Take Compazine one every 8 hours as needed for nausea and vomiting if the Zofran fails. Do not drive today as you received sedating medications. Return if you have any further vomiting or any increasing pain. Follow up next week for your primary care physician. Referrals: Alia Shanks DO (PCP) Devorah Attestation Portions of this note were transcribed by Sarbjit Jarrett. I, Dr. Bolden personally performed the history, physical exam and medical decision-making; I reviewed and confirmed the accuracy of the information in the transcribed note. Signed by Devorah Castaneda, 08/06/16 - 2029 copies to: Alia Shanks Todd P DO Aug 06, 2016 19:56 SARBJIT JARRETT Aug 06, 2016 20:18
[2016-08-06 20:01] LABS: BASOPHILS % (AUTO) 0.2 % (0-3); EOSINOPHILS % (AUTO) 0.2 % (0-5); MONOCYTES % (AUTO) 3.9 % (4-12); Mean Corpuscular Hemoglobin 29.9 pg (27.0-35.0); Mean Corpuscular Volume 87.8 fL (81-100); NEUTROPHILS % (AUTO) 82.5 % (40-74); Platelet Count 291 bil/L (150-400)
[2016-08-06] MEDS: 0.9% Sodium Chloride 1,000 ML IV SCH ×2 (20:05→21:02)
[2016-08-06] MEDS ORDERED: Promethazine Inj 25 MG in 0.9% Sodium Chloride-Pha MIX 100 ML IV ONE (20:20)
[2016-08-06 23:20] VITALS: BP 114/51; PULSE 52; RESP 18; O2SAT 100
[2016-08-06] MEDS ORDERED: ProchlorPERazine 5 mg/mL 2 mL Inj IVPUSH ONE (23:25)
[2016-08-06] MEDS ORDERED: 0.9% Sodium Chloride 1,000 ML IV ONE (23:30)
[2016-08-06 23:53] LABS: APPEARANCE,URINE HAZY (CLEAR,HAZY); COLOR,URINE YELLOW (YELLOW); OCCULT BLOOD,URINE LARGE (NEGATIVE); UROBILINOGEN,URINE NORMAL (NORMAL)
[2016-08-07] MEDS ORDERED: cefTRIAXone Inj 2,000 MG in Dextrose 5% Minibag Plus 50 ML IV ONE (00:50)
[2016-08-07 04:04] VITALS: BP 114/51; PULSE 52; RESP 18; O2SAT 100
--- NOTE | 2016-08-07 11:50 | DRSVH ---
PROCEDURE: CT ABDOMEN AND PELVIS WITH CONTRAST ([id number]) INDICATIONS: 31-year-old female with right lower quadrant abdominal pain, vomiting, and leukocytosis . TECHNIQUE: After the administration of intravenous contrast, 5 mm thick sections acquired from the diaphragm to the symphysis. 5 mm coronal and sagittal reformats were acquired. For radiation dose reduction, the following was used: automated exposure control, adjustment of mA and/or kV according to patient siz e. COMPARISON: [facility], CT, CT ABD PELVIS W CON, 10[facility]2015[facility] 14[facility], [facility], 16:27. [facility], CT, ABD/PELVIS W/CON (PN), 1 , 13:51. FINDINGS: Preliminary interpretation rendered by [employer] [facility]. Image quality: Excellent. ABDOMEN: Lung bases: Lung bases are clear. Heart size is normal. Solid organs: Liver and spleen are normal in size and enhancement. Gallbladder is surgically absent . Biliary system is non dilated. Pancreas enhances normally. No adrenal nodules. Kidneys demonst rate normal size and enhancement, without hydronephrosis. Peritoneum and bowel: Bowel loops demonstrate normal wall thickness and caliber. The appendix appea rs normal in caliber. No free fluid or air. Nodes and vessels: No retroperitoneal or mesenteric adenopathy by size criteria. Aorta and inferior vena cava are normal in size. Miscellaneous: No ventral hernias. PELVIS: Genitourinary: Bladder wall thickness is normal. Uterus and ovaries are normal in size. Miscellaneous: No inguinal hernias or adenopathy. Bones: No suspicious bony lesions. No vertebral body compression fractures. IMPRESSION: No imaging explanation for right lower quadrant abdominal pain. The appendix appears normal. No significant discrepancy with preliminary [facility] report. Dictated by: Mani Alvarado M.D. on 08/07/2016 at 11:44 Approved by: Mani Alvarado M.D. on 08/07/2016 at 11:49
== END 2016-08-07 04:06 | disposition home or self-care (01) ==
LOC: SED 19:23
DX: G43.A0 Cyclical vomiting, in migraine, not intractable (principal); N30.00 Acute cystitis without hematuria; Z87.891 Personal history of nicotine dependence; Z88.5 Allergy status to narcotic agent
CPT/HCPCS: 36415; 74177; 80053; 81000; 81025; 83690; 83735; 84702; 85025; 87086; 87088; 96361; 96365; 96375; 99285; J0696; J0780; J1200; J1885; J2060; J2405; J2550; J7030; Q9967

== ENCOUNTER 2016-11-23 09:34 | Emergency (ER) | payer OTHER ==
[~2016-11-23] VITALS: Ht 154.9 cm; Wt 81.8 kg
[2016-11-23 09:42] VITALS: BP 130/88; PULSE 82; RESP 15; O2SAT 100
[2016-11-23] MEDS ORDERED: 0.9% Sodium Chloride 1,000 ML IV ONE (11:09)
[2016-11-23] MEDS ORDERED: Ketorolac 15 mg/mL Inj IVPUSH ONE (11:10)
[2016-11-23] MEDS ORDERED: Promethazine 25 mg/mL Inj IM ONE (11:10)
[2016-11-23] MEDS ORDERED: ProchlorPERazine 5 mg/mL 2 mL Inj IVPUSH ONE (11:10)
[2016-11-23] MEDS ORDERED: Ondansetron 2 mg/mL 2 mL Inj IVPUSH PRN (11:10)
--- NOTE | 2016-11-23 11:36 | ED.REPORT ---
HPI-Abd Pain F Under 40 Date of Service Nov 23, 2016 ED Provider: Nathaniel Romeo DO 31 y/o female with a hx of multiple admissions for intractable nausea and vomiting secondary to cyclical vomiting.presents to the ED complaining of constant vomiting for the last two days. Associated sx include nausea, sharp upper right quadrant abdominal pain, diarrhea, headache and aching pain and weakness in all extremities. She denies difficulty walking due to the weakness, hematemesis, hematochezia and melena. She has experienced similar sx before but states that usually she gets chest pain and abdominal pain but this time, she has a headache and extremity weakness. She states her headache came on 4 days ago, followed by the other symptoms two days later. Showering seems to relieve her nausea. Nursing Notes Stated Complaint: NAUSEA, VOMITING, DIARRHEA Chief Complaint: General Complaint Nursing Notes Reviewed: Yes Allergies: Coded Allergies: hydromorphone (Verified Allergy, Intermediate, Nausea,Vomiting, 08/06/16) Scheduled PRN Ondansetron (Zofran) 4 Mg Tablet 4 MG PO Q4H PRN PRN For Nausea Promethazine Supp (Promethazine Supp) 25 Mg Supp 25 MG RECTAL Q8H PRN PRN For Nausea/Vomiting General Time Seen by MD: 10:53 Chief Complaint Abdominal pain Hx Obtained From: Patient Sudden in Onset?: Yes Onset Occurred: 2 days ago Symptom Duration: Since onset Location: : RUQ Quality: Sharp Radiation: : Does not radiate Severity: Current: Moderate Severity: Maximum: Moderate Recent Healthcare: Recent doctor visit Similar Sx Previous: Yes Past Medical History Past Medical History Multiple admissions for intractable nausea and vomiting secondary to cyclical vomiting. Past Surgical History laparascopic cholecystectomy Reports: Reports: Tubal ligation Family History Noncontributory Smoking History Former Smoker Social History Alcohol Use: "Social" Drug Use: THC Other Social History: Frequent ED visitor, Local resident Ambulatory Status Independent Review of Systems GI: Reports: Abdominal pain, Diarrhea, Nausea, Vomiting, Denies: Hematemesis, Hematochezia, Melena Musculoskeletal: Reports: Extremity pain (aching in all extremities) Complete sys rev & neg: except as marked. Neurologic: Reports: Headache, Weakness (in all extremities) Physical Exam Initial Vital Signs Vital Signs (First) Date Time Temp Pulse Resp B/P Pulse Ox O2 Delivery O2 Flow Rate FiO2 7/18/17 09:42 36.5 82 15 130/88 100 Room Air Initial VS: Reviewed Head / Eyes: Atraumatic, Normocephalic Neck: Supple, Non-tender, Full range of motion Extremities: Vascular intact, Neuro intact, No swelling, No tenderness Skin: Warm, Dry, No cyanosis Neurologic: Alert, Oriented, Nonfocal General/Constitutional: Awake, Alert, Cooperative Distress / Hydration: Positive: Distress mild Appearance / Presentation: Positive: Obese Respiratory / Chest: Atraumatic, Breath sounds NL, Breath sounds = bilat, No respiratory distress, No rales, No rhonchi, No wheezing Cardiovascular: Heart rate NL, Regular rhythm, Heart sounds NL, No gallop, No murmurs, No rubs Abdomen: Atraumatic, Soft, Non-tender, No guarding, No rebound Back: Atraumatic, Full range of motion Interpretation & Diagnostics Lab Results Interpretation Result Diagram: 11/23/16 1146 11/23/16 1146 Test 11/23/16 09:50 11/23/16 11:46 11/23/16 12:17 Hold Urine Received (Received) White Blood Count 7.4th/mm3 (3.8-10.1) Red Blood Count 4.91mil/mm3 (3.90-5.20) Hemoglobin 14.7g/dL (12.0-15.6) Hematocrit 42.1% (35.0-46.0) Mean Corpuscular Volume 85.7fL (81-100) Mean Corpuscular Hemoglobin 29.9pg (27.0-35.0) Mean Corpuscular Hemoglobin Concent 34.9% (32.0-37.0) Red Cell Distribution Width 12.5% (12.3-15.4) Platelet Count 306bil/L (150-400) Neutrophils (%) (Auto) 58.8% (40-74) Lymphocytes (%) (Auto) 31.3% (14-46) Monocytes (%) (Auto) 7.2% (4-12) Eosinophils (%) (Auto) 2.2% (0-5) Basophils (%) (Auto) 0.4% (0-3) Sodium Level 139mEq/L (134-144) Potassium Level 4.1mEq/L (3.5-5.2) Chloride Level 101mEq/L (97-108) Carbon Dioxide Level 21mmol/L (18-29) Blood Urea Nitrogen 13mg/dL (6-20) Creatinine 0.69mg/dL (0.57-1.00) Estimat Glomerular Filtration Rate 141mL/min (>59) Glucose Level 101mg/dL (60-99) Calcium Level 9.8mg/dL (8.5-10.1) Magnesium Level 2.1mg/dL (1.6-2.6) Total Bilirubin 0.7mg/dL (0.0-1.2) Aspartate Amino Transf (AST/SGOT) 22U/L (0-50) Alanine Aminotransferase (ALT/SGPT) 32U/L (0-32) Alkaline Phosphatase 57U/L (25-150) Total Protein 8.0g/dL (6.4-8.4) Albumin 4.6g/dL (3.4-5.0) Lipase 22U/L (13-60) Hold Small Top Tube Received (Received) Re-Eval/Medical Decision Source of Hx: Old records Re-Evaluation/Progress : Time of Eval: 12:57 Patient Status: Condition improved Re-Evaluation/Progress Note: Rechecked pt. She is tolerating oral intake and feeling better. Discussed lab results, diagnosis and plan to discharge. Pt understands and agrees with the plan. F/U instructions and RTER warning given. All questions addressed. Counseled Regarding: Diagnosis, Lab results, Need for follow-up, When/why to return to ED Discharge & Departure Primary Impression: Vomiting Vomiting type: unspecified Vomiting Intractability: intractable Nausea presence: with nausea Qualified Code: R11.2 - Nausea with vomiting, unspecified Additional Impressions: Dehydration Electrolyte abnormality Disposition: ADMITTED TO HOSPITAL Discharge Condition All VS Reviewed: Yes Condition: Stable Additional Instructions: Thank you for entrusting us with your care today. Your lab results were reassuring. Use promethazine suppositories as needed. Stop smoking marijuana. Follow up with your primary care provider for further evaluation if needed. Emergency department is always available for any concerns. Referrals: [facility] Scribe Attestation Portions of this note were transcribed by Ashley Martinez. I,, personally performed the history, physical exam and medical decision-making;I reviewed and confirmed the accuracy of the information in the transcribed note. Signed by Devorah Wang. 11/23/16 13:07 Nathaniel Romeo DO Nov 23, 2016 11:36 Ashley Martinez Nov 23, 2016 12:43
[2016-11-23 12:01] LABS: BASOPHILS % (AUTO) 0.4 % (0-3); EOSINOPHILS % (AUTO) 2.2 % (0-5); MONOCYTES % (AUTO) 7.2 % (4-12); Mean Corpuscular Hemoglobin 29.9 pg (27.0-35.0); Mean Corpuscular Volume 85.7 fL (81-100); NEUTROPHILS % (AUTO) 58.8 % (40-74); Platelet Count 306 bil/L (150-400)
[2016-11-23 12:29] LABS: Magnesium 2.1 mg/dL (1.6-2.6)
[2016-11-23] MEDS ORDERED: PROM25SU47 RECTAL (13:02)
[2016-11-23 13:19] VITALS: BP 124/82; PULSE 78; RESP 15; O2SAT 100
== END 2016-11-23 13:20 | disposition home or self-care (01) ==
LOC: SED 09:34
DX: E86.0 Dehydration (principal); R11.2 Nausea with vomiting, unspecified; E87.8 Other disorders of electrolyte and fluid balance, not elsewhere classified; Z87.891 Personal history of nicotine dependence; Z88.5 Allergy status to narcotic agent
CPT/HCPCS: 36415; 80053; 81025; 83690; 83735; 85025; 96361; 96372; 96374; 96375; 99284; J0780; J1200; J1885; J2405; J2550; J7030

== ENCOUNTER 2016-11-30 12:55 | Emergency (ER) | payer OTHER ==
[~2016-11-30] VITALS: Ht 154.9 cm; Wt 81.8 kg
[~2016-11-30 12:55] MED LIST changes: -DIPH25CA6 PO; -METO5SOL19 PO; +PROM25SU47 RECTAL
[2016-11-30 12:57] VITALS: BP 11/68; PULSE 75; RESP 18; O2SAT 98
--- NOTE | 2016-11-30 13:13 | ED.REPORT ---
HPI-General Illness Date of Service Nov 30, 2016 ED Provider: Nathaniel Romeo Patient is a 31 year old female with a hx of THC use and frequent ED visits who presents to the ED complaining of nausea and vomiting onset a week ago. Associated symptoms include headache. She denies diarrhea, fever, chills, or any other symptoms. She has a known incidental diagnosis of Chiari malformation and h is supposed to F/U with neurosurgery but has not contacted them in several months. She was seen last week for the same symptoms. She is seen on a regular basis for these symptoms. Patient also gets headaches associated with mild low-lying cerebellar tonsils ( per Brain MRI in 03/24) Nursing Notes Stated Complaint: NAUSEA/VOMITING Chief Complaint: General Complaint Nursing Notes Reviewed: Yes Allergies: Coded Allergies: hydromorphone (Verified Allergy, Intermediate, Nausea,Vomiting, 08/06/16) Scheduled PRN Ondansetron (Zofran) 4 Mg Tablet 4 MG PO Q4H PRN PRN For Nausea Promethazine Supp (Promethazine Supp) 25 Mg Supp 25 MG RECTAL Q8H PRN PRN For Nausea/Vomiting General Time Seen by MD: 13:13 Chief Complaint Vomiting Hx Obtained From: Patient Arrived By: Walk-in Sudden in Onset?: Yes Onset Occurred: 1 week ago Symptom Duration: Since onset Recent Healthcare: Recent doctor visit, Recent testing, Previous diagnosis, Prior workup Similar Sx Previous: Yes Past Medical History Past Medical History Multiple admissions for intractable nausea and vomiting secondary to cyclical vomiting. GERD Past Surgical History laparascopic cholecystectomy Reports: Reports: Tubal ligation Family History Noncontributory Smoking History Former Smoker Social History Vaporizes daily Alcohol Use: "Social" Drug Use: THC Other Social History: Smokeless tobacco, Frequent ED visitor, Local resident Ambulatory Status Independent Review of Systems Full Review of Systems Constitutional: Denies: Chills, Fever GI: Reports: Nausea, Vomiting, Denies: Diarrhea Neurologic: Reports: Headache Complete sys rev & neg: except as marked. Physical Exam Vital Signs Vital Signs Date Time Temp Pulse Resp B/P Pulse Ox O2 Delivery O2 Flow Rate FiO2 11/30/16 15:33 80 20 100 11/30/16 14:13 64 16 119/53 97 Room Air 11/30/16 12:57 36.6 75 18 98 Room Air Initial VS: Reviewed, Vital signs abnormal Head / Eyes: Atraumatic, Normocephalic Neck: Full range of motion Respiratory: Breath sounds normal, Clear to auscultation, No respiratory distress Cardiovascular: Regular rate & rhythm, Heart sounds normal, Intact distal pulses Abdomen / GI: Soft, Non-tender Skin: Warm, Dry Neurologic: Alert, Oriented, Nonfocal Psychiatric: Mood/affect normal, Behavior normal, Normal thought content General/Constitutional: Awake, Alert Behavior: Positive: Tearful Interpretation & Diagnostics Lab Results Interpretation Result Diagram: 11/30/16 1358 11/30/16 1358 Test 11/30/16 13:58 11/30/16 14:08 White Blood Count 7.4th/mm3 (3.8-10.1) Red Blood Count 4.83mil/mm3 (3.90-5.20) Hemoglobin 14.4g/dL (12.0-15.6) Hematocrit 43.0% (35.0-46.0) Mean Corpuscular Volume 89.0fL (81-100) Mean Corpuscular Hemoglobin 29.8pg (27.0-35.0) Mean Corpuscular Hemoglobin Concent 33.5% (32.0-37.0) Red Cell Distribution Width 12.3% (12.3-15.4) Platelet Count 343bil/L (150-400) Neutrophils (%) (Auto) 62.0% (40-74) Lymphocytes (%) (Auto) 27.9% (14-46) Monocytes (%) (Auto) 7.0% (4-12) Eosinophils (%) (Auto) 2.3% (0-5) Basophils (%) (Auto) 0.5% (0-3) Sodium Level 136mEq/L (134-144) Potassium Level 4.7mEq/L (3.5-5.2) Chloride Level 98mEq/L (97-108) Carbon Dioxide Level 24mmol/L (18-29) Blood Urea Nitrogen 12mg/dL (6-20) Creatinine 0.65mg/dL (0.57-1.00) Estimat Glomerular Filtration Rate 151mL/min (>59) Glucose Level 98mg/dL (60-99) Calcium Level 9.5mg/dL (8.5-10.1) Magnesium Level 2.0mg/dL (1.6-2.6) Total Bilirubin 0.2mg/dL (0.0-1.2) Aspartate Amino Transf (AST/SGOT) 30U/L (0-50) Alanine Aminotransferase (ALT/SGPT) 34U/L (0-32) Alkaline Phosphatase 60U/L (25-150) Total Protein 7.7g/dL (6.4-8.4) Albumin 4.5g/dL (3.4-5.0) Lipase 23U/L (13-60) Hold Urine Received (Received) Lab Results Interpretation: urine analysis neg for infection and no ketones Re-Eval/Medical Decision Med Decision/Clinical Course Patient presents with daily marijuana use and nausea and reported vomiting. She has incidental finding of a Chiari malformation which was diagnosed approximately 8-9 months ago, for which she is currently awaiting neurosurgical evaluation. She reports feeling anxious and nauseated. There has been no evidence of vomiting in the ER. Her vital signs are stable her labs are unremarkable, there is not evidence of ketones in her urine to suggest malnutrition. She is neurologically intact. It is unlikely that she has an acute neurological condition causing this and is more likely related to her frequent regular marijuana use. She has poor insight into the fact that this may be contributing and refuses to attempt cessation. After medication, she is now tolerating oral intake. She is requesting discharge. Once again she is encouraged not to smoke marijuana and follow-up with a neurosurgeon for further evaluation of the Chiari malformation. Return precautions given. Time of Eval: 12:45 Re-Evaluation/Progress Note: Rechecked patient who does not appear to be in any distress and is not vomiting. Discussed daily marijuana use and patient is persistent that she will not quit. Time of Eval: 15:04 Re-Evaluation/Progress Note: Patient is taking po fluids without vomiting. Discussed plan for discharge. Patient understands and agrees with plan. All questions addressed at this time. Counseled Regarding: Diagnosis, Lab results, Need for follow-up, When/why to return to ED Discharge & Departure Primary Impression: Cannabinoid hyperemesis syndrome Disposition: Home Discharge Condition All VS Reviewed: Yes Condition: Improved Patient Instructions: Cannabis Abuse (ED) Additional Instructions: Thank you for entrusting us with your care. Your labs and exam are reassuring. I believe your symptoms may be due to your daily Cannibis use. I encouraged you to stop to see if your symptoms resolve. Follow up with your primary provider. Contact the residency clinic with the number provided if you do not have primary care. Return to the emergency department for new or worsening symptoms. Referrals: [facility] [place] Attestation Portions of this note were transcribed by Fidel Tao. I, Dr. Romeo personally performed the history, physical exam and medical decision-making; I reviewed and confirmed the accuracy of the information in the transcribed note. Signed by: Devorah Nielsen, 11/30/16 at 1505 copies to: [facility] Nathaniel Romeo DO Nov 30, 2016 13:13 FIDEL TAO Nov 30, 2016 13:43
[2016-11-30] MEDS ORDERED: 0.9% Sodium Chloride 1,000 ML IV ONE (13:37)
[2016-11-30] MEDS ORDERED: Promethazine Inj 25 MG in 0.9% Sodium Chloride 50 ML IV ONE (13:40)
[2016-11-30 14:13] VITALS: BP 119/53; PULSE 64; RESP 16; O2SAT 97
[2016-11-30 14:24] LABS: BASOPHILS % (AUTO) 0.5 % (0-3); EOSINOPHILS % (AUTO) 2.3 % (0-5); Mean Corpuscular Hemoglobin 29.8 pg (27.0-35.0); Platelet Count 343 bil/L (150-400)
[2016-11-30] MEDS ORDERED: Haloperidol 5 mg/mL Inj IVPUSH ONE (14:45)
[2016-11-30 15:33] VITALS: PULSE 80; RESP 20; O2SAT 100
== END 2016-11-30 15:25 | disposition home or self-care (01) ==
LOC: SED 12:55
DX: F12.10 Cannabis abuse, uncomplicated (principal); R11.2 Nausea with vomiting, unspecified; K21.9 Gastro-esophageal reflux disease without esophagitis; Z87.891 Personal history of nicotine dependence; Z88.5 Allergy status to narcotic agent
CPT/HCPCS: 36415; 80053; 81002; 81025; 83690; 83735; 85025; 96361; 96374; 96375; 99284; J1630; J2550; J7030